=== PATIENT | male | born 1980 | race American Indian/Alaskan Native ===

== ENCOUNTER 2019-07-19 18:29 | Emergency (ER) | payer OTHER ==
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
[2019-07-19 20:42] VITALS: BP 128/89
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
[2019-07-19] MEDS ORDERED: IBUPROFEN 800 MG TAB PO ONE (21:57)
[2019-07-19] MEDS ORDERED: dexAMETHasone 20 MG/5 ML VIAL IM ONE (21:57)
[2019-07-19] MEDS ORDERED: HYDROcodone/ACETAMINOPHEN 5-325 MG TAB PO ONE (21:57)
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
== END 2019-07-20 01:10 | disposition home or self-care (01) ==
LOC: ED 18:29
DX: R07.89 Other chest pain (principal); F17.200 Nicotine dependence, unspecified, uncomplicated; Z79.899 Other long term (current) drug therapy; V49.49XA Driver injured in collision with other motor vehicles in traffic accident, initial encounter; Y93.89 Activity, other specified; Y92.488 Other paved roadways as the place of occurrence of the external cause; Y99.8 Other external cause status
CPT/HCPCS: 71046; 73030; 96372; 99284; J1100